=== PATIENT | male | born 1930 | race Caucasian/White ===

== ENCOUNTER 2016-07-30 16:16 | Outpatient (CLI) | payer OTHER ==
[2016-05-11 08:13] VITALS: BMI 23.6
[2016-07-30 17:18] LABS: ALBUMIN 3.5 g/dL (3.4-5.0); ANION GAP 13.2; CALCIUM 8.8 mg/dL (8.2-10.2); CREATININE 0.94 mg/dL (0.60-1.10); PHOSPHORUS 2.7 mg/dL (2.3-3.7); POTASSIUM 3.2 mmol/L (3.5-5.1)
[2016-07-30 17:19] LABS: BUN/CREATININE RATIO 14.89
== END 2016-07-30 16:17 | disposition home or self-care (01) ==
LOC: LAB 16:16
PROVIDERS: ATTEND General Practice
DX: I50.9 Heart failure, unspecified (principal); N18.4 Chronic kidney disease, stage 4 (severe)
CPT/HCPCS: 36415; 80069; 83880

== ENCOUNTER 2016-10-18 09:20 | Outpatient (CLI) | payer OTHER ==
[2016-05-11 08:13] VITALS: BMI 23.6
--- NOTE | 2016-10-18 10:12 | CT ---
EXAM: CT Abdomen without contrast. CT Pelvis without contrast. HISTORY: Left lower quadrant pain. COMPARISON: 05/18/2016. TECHNIQUE: Multiple axial images of the abdomen and pelvis were obtained without intravenous contra st. Images were reformatted in the coronal plane. FINDINGS: Please note that evaluation of the abdominal and pelvic structures is limited due to lack of intravenous contrast. There has been previous sternotomy. Lung bases are clear. Heart is enlarged. Degenerative changes seen throughout the spine and hips. Gallbladder is absent. The liver, pancreas, spleen, and adrenal glands demonstrate normal contour. No calcified renal stones or hydronephrosis detected. The bowel is normal in course and caliber without evidence for obstruction or inflammatory process. Colonic diverticulosis noted. Urinary bladder is unremarkable. No free fluid or free air identifi ed. Atherosclerotic calcifications are present with fusiform dilatation of the infrarenal abdominal aorta to a maximum diameter of 3.2 x 3 cm. Right common iliac artery demonstrates fusiform dilatat ion to a maximum diameter 3 cm. Left common iliac artery demonstrates fusiform dilatation to a maxi mum diameter 2.6 cm. IMPRESSION: 1. No acute inflammatory process in the abdomen or pelvis. 2. Diverticulosis. 3. Atherosclerosis with 3.2 x 3 cm fusiform infrarenal abdominal aortic aneurysm. 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
== END 2016-10-18 09:21 | disposition home or self-care (01) ==
LOC: RAD 09:20
PROVIDERS: ATTEND General Practice
DX: R10.819 Abdominal tenderness, unspecified site (principal)

== ENCOUNTER 2016-10-18 22:52 | Outpatient (CLI) | payer OTHER ==
[2016-05-11 08:13] VITALS: BMI 23.6
== END 2016-10-18 22:53 ==
LOC: AMBL 22:52
PROVIDERS: ATTEND Emergency Medicine
DX: S00.93XA Contusion of unspecified part of head, initial encounter (principal); W19.XXXA Unspecified fall, initial encounter